=== PATIENT | male | born 1970 | race Caucasian/White ===

== ENCOUNTER 2021-12-09 09:35 | Outpatient (REF) | payer OTHER, SELFPAY ==
[2021-12-09 14:21] LABS: Anion Gap 5.4 mmol/L (3-11); BUN 24 mg/dL (7-18); CO2 31.6 mmol/L (21.0-32.0); Calcium 9.6 mg/dL (8.5-10.1); Calculated LDL 167 mg/dL (<100); Chloride 107 mmol/L (98-107); Cholesterol 253 mg/dL (<200); Glucose 96 mg/dL (74-106); HDL Cholesterol 76 mg/dL (40-60); Magnesium 2.1 mg/dL (1.8-2.4); Potassium 5.5 mmol/L (3.5-5.1); Sodium 144 mmol/L (136-145); Triglyceride 52 mg/dL (<150)
== END 2021-12-09 09:36 | disposition home or self-care (01) ==
LOC: NCHCN 09:35
PROVIDERS: Visit Provider Family Medicine
DX: Z00.00 Encounter for general adult medical examination without abnormal findings (principal); Z13.220 Encounter for screening for lipoid disorders; Z13.228 Encounter for screening for other metabolic disorders
CPT/HCPCS: 80048; 80061; 83735

== ENCOUNTER 2022-12-06 12:27 | Emergency (ER) | payer OTHER, SELFPAY ==
--- NOTE | 2022-12-06 12:30 | RT.EKG_ITS ---
APPROVED REPORT Exam: Resting ECG Reason for Exam: sob Patient Location: E HR:62 bpm ECG Measurements Heart Rate 62 AXIS NH 149 P 70 QRSd 105 QRS 64 QT 405 T 44 QTc 413 Conclusion Sinus rhythm...normal P axis, V-rate 60- 99 ST elev, probable normal early repol pattern...ST elevation, age<55
[2022-12-06 12:31] VITALS: BP 153/84; PULSE 63; RESP 18; TEMP 36.7; O2SAT 99
[2022-12-06] MEDS: Aspirin 81 MG CHEW 324 MG CH (12:51)
[2022-12-06 12:52] VITALS: RESP 15
[2022-12-06 12:55] LABS: Abs Immature Grans 0.05 10^3/uL (0.0-0.06); Absolute Basophil Count 0.06 10^3/uL (0.0-0.2); Absolute Eosinophil Count 0.28 10^3/uL (0.0-0.7); Absolute Lymphocyte Count 1.39 10^3/uL (1.2-3.4); Absolute Monocyte Count 1.34 10^3/uL (0.1-0.8); Basophils % 0.5; Eosinophils % 2.4; HCT 43.1 % (40.0-50.0); HGB 14.8 g/dL (13.5-17.5); Immature Grans % 0.4; Lymphocytes % 12.1; MCH 30.3 pg (27.0-33.0); MCHC 34.3 % (32.0-36.0); MCV 88 fL (80-95); MPV 9.3 fL (8.0-11.0); Monocytes % 11.7; Neutrophils % 72.9; Platelet Count 257 10^3/uL (130-400); RBC 4.88 10^6/uL (4.36-5.78); RDW-SD 39.1 fL; WBC 11.46 10^3/uL (4.4-10.8)
[2022-12-06 12:56] LABS: Absolute Neutrophil Count 8.35 10^3/uL (1.2-6.7)
--- NOTE | 2022-12-06 13:05 | ED.GENADUL_ITS ---
Discharge Plan Disposition Patient Disposition: Home Discharge Details Clinical Impression: Pulmonary embolism Primary Care Provider: Nolan Cohen ED Provider: Sudarshan Monroe Home Meds and New Rx's Prescriptions: New Eliquis DVT-PE Treat 30D Start 5 mg (74 tabs) tablets,dose pack 5 mg PO ONCE Qty: 74 0RF Rx Instructions: 10mg BID x 1 week then 5mg BID Discharge Instructions Instructions: Pulmonary Embolism (ED) Additional Instructions: If you develop any new or significant worsening of symptoms such as severe shortness of breath, syncope/passing out, severe chest pain return immediately to the emergency department for reassessment. Otherwise you will need to follow-up with your primary care provider in the next couple days for recheck. Referrals: Nolan Cohen MD [Primary Care Provider] - 3 days Discharge Data Discharge Date/Time-TO BE ENTERED AT DEPARTURE: 12/06/22 18:31 Medical Decision Making Patient presenting to the emergency department for chief complaint of chest pain. Patient reports that as he has been traveling in [place] over the last 3 days he had some chest pain and shortness of breath. It seemed to resolve then this morning had come back and has now been persistent left-sided chest pain which patient states is underneath his pectoral muscle. He does state sharp pain when he takes a deep breath. Patient denies any other injury or trauma, does state that he had a superficial thrombophlebitis about a week ago which resolved. Patient denies all other past medical history, states he is not on any medications, does occasionally have alcohol but denies any tobacco use. Physical exam is unremarkable except for noted discomfort when patient does take deep inspiration. Lung sounds are clear vital signs are stable beyond slightly noted hypertension. We will plan on checking labs, EKG, and imaging of the chest. Please see physician interpretation for full interpretation of EKG but upon my review patient is in sinus rhythm, rate of 62. No acute findings to suggest STEMI but there is noted ST changes with machine read of early repole. We will continue to monitor. Review of labs show a slight elevation of WBC neutrophils and lymphocytes, D- dimer is positive at 1000 408, CMP only shows slight elevation of bilirubin at 1.1 otherwise nondiagnostic. Troponin is negative and nondetectable, BNP is 54. Reviewed radiological imaging and spoke to radiologist whom stated that patient does have some right-sided PEs with left-sided pleural effusion. Discussed this with patient and patient states no right-sided pain or discomfort but is still having left-sided pain. We will start patient on Eliquis but will continue with repeat Trop given continued left-sided pain. Second troponin was negative and patient reassessed and remains nontachycardic, nonhypoxic, with stable vital signs. Given this I do feel that patient is appropriate for outpatient follow-up for PE and patient started on Eliquis. Did request a urgent follow-up with primary care provider for close monitoring and did give patient very clear instructions to return for new or worsening symptoms. After discussion of diagnosis and plan of care patient has no further needs, questions, or concerns and states clear understanding to return to the emergency department for any worsening symptoms. This documentation was generated using [employer] system, please disregard any oddities of phrase or misspellings. Imaging Data Radiologic Study: Attestation: I personally reviewed and interpreted this imaging study as follows: Imaging: CT Scan Radiologist's impression: Exam(s) CT CHEST PE CTA EXAM: CT CHEST PE CTA CLINICAL HISTORY: chest pain elevated ddimmer. TECHNIQUE: Imaging Protocol: Axial CT angiography was performed with multi- slice acquisition and multi-planar reconstructions as well as axial, coronal and sagittal MIP reconstructions. CONTRAST MATERIAL: Intravenous: Omnipaque 350 Contrast volume:100 ml COMPARISON: No exams were available for comparison FINDINGS: Pulmonary Arteries: Multiple pulmonary artery filling defects in segmental and subsegmental branches. Anterior right upper lobe. Posterior right lower lobe branches. Lingular branches. Tracheobronchial tree: Patent where visualized. Mediastinum and Rosaura: No dominant adenopathy or fluid collection. Pulmonary parenchyma: Mildly limited evaluation due to respiratory motion and expiratory changes. No consolidation or dominant measurable mass. Pleura: No pneumothorax. Small left pleural effusion. Heart: The heart is not dilated. No evidence of right heart strain. No coronary artery calcifications are seen. Aorta: Thoracic aorta non-dilated. No aneurysm. No dissection. Upper abdomen: Cyst upper pole right kidney. Bones: Unremarkable for age. Tubes, Catheters, and Lines: None IMPRESSION: Several small bilateral pulmonary emboli, greatest in the right lower lobe. Small left pleural effusion. HPI General Mode of arrival: ambulatory . Date/Time Provider Initiated Documentation: 12/06/22 12:38 . Limitations to Documentation: no limitations . Information obtained by: patient and RN notes reviewed . History of Present Illness 52 year old M presents to the emergency department with the chief complaint of Chest pain, shortness of breath, described as mild, with intensity rated at 2. Quality is described as stabbing and aching, and is localized to the chest. Patient reports radiation to back. Patient started experiencing this day(s) (3) and it has been intermittent. Medication improves symptom(s), (Some mild improved with ibuprofen) Other factors that worsen symptoms (Deep breathing) . Patient notes denies confusion, fever/chills, malaise, syncope and weakness. Patient did receive the following treatments prior to arrival, none Related Data Home Medications Medication Instructions Recorded Confirmed apixaban 5 mg (74 tabs) tablets in 5 mg PO ONCE #74 dose pk 12/06/22 a dose pack (Eliquis DVT-PE Treat 30D Start) Previous Rx's Medication Instructions Recorded apixaban 5 mg (74 tabs) tablets in 5 mg PO ONCE #74 dose pk 12/06/22 a dose pack (Eliquis DVT-PE Treat 30D Start) General Stated Complaint: Chest Pain MYRIAM: 3 Review of Systems Constitutional Constitutional: Denies chills, Denies fever(s) and Denies malaise Cardiovascular Cardiovascular: Reports as per HPI, Reports chest pain, Denies chest pain with activity, Denies syncope, Denies irregular heart rhythm, Denies palpitations and Reports dyspnea Respiratory Respiratory: Denies cough, Denies hemoptysis, Reports pain on inspiration and Reports dyspnea Gastrointestinal Gastrointestinal: Denies abdominal pain, Denies nausea and Denies vomiting Neurologic Neurologic: Denies syncope Psychiatric Psychiatric: Denies anxiety Endocrine Endocrine: Denies cold intolerance, Denies heat intolerance and Denies palpitations PFSH All Active Problems (Updated 12/06/22 @ 16:01 by Sudarshan Monroe NP) Pulmonary embolism (Chronic) Social History Smoking/Tobacco Use Status: Never Smoking risk assessment performed?: Yes Alcohol Intake: current Alcohol Intake frequency: a few times a week Substance use type: does not use and sedatives Do you feel safe at home: Yes Do you feel safe in your relationship?: Yes Exam Const General: cooperative, comfortable, no acute distress, not diaphoretic and not ill appearing Nutritional Appearance: average body habitus Orientation: alert, awake and oriented x3 Limitations: mental status not altered Neck Neck: normal visual inspection, full ROM, trachea midline, supple and no anterior neck swelling Thyroid: thyroid normal Carotids: normal carotid upstroke and no bruits Chest Chest: normal inspection of the chest Resp Effort & Inspection: normal respiratory effort and able to speak in complete sentences Auscultation: clear to auscultation bilaterally Cardio Jugular venous pressure: no JVD Palpation: normal PMI Rate: regular rate Rhythm: regular rhythm Heart Sounds: S1 normal, S2 normal, no click, no gallops, no murmurs and no rubs Bruits: no abdominal aortic bruits and no carotid bruits Pulses: radial pulses present bilaterally 2+ GI Inspection: normal to inspection Palpation: soft, no aortic enlargement, no pulsatile masses and nontender Auscultation: normal bowel sounds Skin General skin exam: no rashes or lesions noted Neuro General: patient alert, patient awake, patient oriented x3, tone normal and moves all extremities Course Vital Signs Vital signs: Vital Signs Temperature 36.7 C 12/06/22 12:31 Pulse 63 12/06/22 12:31 Respiratory Rate 18 12/06/22 12:31 Blood Pressure 153/84 H 12/06/22 12:31 Pulse Oximetry 99 12/06/22 12:31 Temperature 36.7 C 12/06/22 12:31 Temperature Source Rectal 12/06/22 12:31 Pulse 63 12/06/22 12:31 Respiratory Rate 15 12/06/22 12:52 Respiratory Effort Normal 12/06/22 12:52 Respiratory Depth Normal 12/06/22 12:52 Respiratory Pattern Normal 12/06/22 12:52 Blood Pressure 153/84 H 12/06/22 12:31 Blood Pressure Position Supine 12/06/22 12:31 Pulse Oximetry 99 12/06/22 12:31 Oxygen Delivery Method Room Air 12/06/22 12:31 Oxygen Flow Rate 0 12/06/22 12:31 Lab/Test Results Lab/Test Results: Laboratory Tests Range/Units 12/06/22 12:43 WBC (4.4-10.8) 10^3/uL 11.46 H RBC (4.36-5.78) 10^6/uL 4.88 Hgb (13.5-17.5) g/dL 14.8 Hct (40.0-50.0) % 43.1 MCV (80-95) fL 88 MCH (27.0-33.0) pg 30.3 MCHC (32.0-36.0) % 34.3 RDW (11.8-14.1) % 12.0 Plt Count (130-400) 10^3/uL 257 MPV (8.0-11.0) fL 9.3 Immature Gran % 0.4 Neutrophils % 72.9 Lymphocytes % 12.1 Monocytes % 11.7 Eosinophils % 2.4 Basophils % 0.5 Nucleated RBC % (0.0-0.3) % 0.0 Absolute Neutrophils (1.2-6.7) 10^3/uL 8.35 H Absolute Lymphocytes (1.2-3.4) 10^3/uL 1.39 Absolute Monocytes (0.1-0.8) 10^3/uL 1.34 H Absolute Eosinophils (0.0-0.7) 10^3/uL 0.28 Absolute Basophils (0.0-0.2) 10^3/uL 0.06 PAWSS Have you Been Recently Intoxicated or Drunk Within the Last 30 days?: No Have you Ever Experienced Previous Episodes of Alcohol Withdrawal?: No Have you ever Experienced Withdrawal Seizures?: No Have you ever Experienced Delirium Tremens(DT)s?: No Have you ever undergone Alcohol Rehabilitation Treatment (i.e, inpt ot outpatient treatment programs)?: No Have you ever Experienced Blackouts?: No Have you ever Combined Alcohol with other Downers within the last 90 days?: No Have you ever Combined Alcohol with any other Substance of Abuse during the last 90 days?: No Positive Blood Alcohol level on Presentation? [PCS.BAL]: No Evidence of Increased Autonomic Activity (i.e. HR>120, tremor, sweating, agitation, nausea)?: No Result: 0
[2022-12-06 13:23] LABS: ALT 27 U/L (16-63); AST 21 U/L (15-37); Albumin 3.8 g/dL (3.4-5.0); Alkaline Phosphatase 90 U/L (46-116); Anion Gap 9.3 mmol/L (3-11); BUN 18 mg/dL (7-18); Bilirubin, Total 1.1 mg/dL (0.2-1.0); CO2 26.7 mmol/L (21.0-32.0); Calcium 8.8 mg/dL (8.5-10.1); Chloride 105 mmol/L (98-107); Glucose 102 mg/dL (74-106); Magnesium 1.9 mg/dL (1.8-2.4); NT-proBNP 54 pg/mL (<300); Potassium 3.9 mmol/L (3.5-5.1); Sodium 141 mmol/L (136-145); Total Protein 7.8 g/dL (6.4-8.2); Troponin I < 50 ng/L (<or=60)
[2022-12-06 13:38] LABS: D-Dimer 1408 ng/mlFEU (<500)
--- NOTE | 2022-12-06 13:42 | DI.CT_ITS ---
Exam(s) CT CHEST PE CTA EXAM: CT CHEST PE CTA CLINICAL HISTORY: chest pain elevated ddimmer. TECHNIQUE: Imaging Protocol: Axial CT angiography was performed with multi-slice acquisition and mu lti-planar reconstructions as well as axial, coronal and sagittal MIP reconstructions. CONTRAST MATERIAL: Intravenous: Omnipaque 350 Contrast volume:100 ml COMPARISON: No exams were available for comparison FINDINGS: Pulmonary Arteries: Multiple pulmonary artery filling defects in segmental and subsegmental branches. Anterior right upper lobe. Posterior right lower lobe branches. Lingular branches. Tracheobronchial tree: Patent where visualized. Mediastinum and Rosaura: No dominant adenopathy or fluid collection. Pulmonary parenchyma: Mildly limited evaluation due to respiratory motion and expiratory changes. No consolidation or dominant measurable mass. Pleura: No pneumothorax. Small left pleural effusion. Heart: The heart is not dilated. No evidence of right heart strain. No coronary artery calcificatio ns are seen. Aorta: Thoracic aorta non-dilated. No aneurysm. No dissection. Upper abdomen: Cyst upper pole right kidney. Bones: Unremarkable for age. Tubes, Catheters, and Lines: None IMPRESSION: Several small bilateral pulmonary emboli, greatest in the right lower lobe. Small left pleural effus ion. RADIATION DOSE DELIVERED: 552.13mGy.cm Total DLP DATA REPOSITORY: All CT scans at this facility are submitted to the National Radiology Data Registry (NRDR) Dose Index Registry (DIR) with the [employer] (ACR). RADIATION OPTIMIZATION: All CT scans at this facility use at least one of these dose optimization te chniques: automated exposure control; mA and/or kV adjustment per patient size (includes targeted exa ms where dose is matched to clinical indication); or iterative reconstruction.
[2022-12-06] MEDS: Normal Saline - Diluent 50 ML VIAL IJ (14:02)
[2022-12-06] MEDS: Omnipaque 350 MG/ML 500 ML BTL-Imaging package IJ (14:03)
[2022-12-06] MEDS: Apixaban 5 MG TAB 10 MG PO (15:04)
[2022-12-06 16:01] LABS: Troponin I < 50 ng/L (<or=60)
--- NOTE | 2022-12-06 17:20 | NUR.NOTE ---
Nursing Note: Referral faxed to PCP for follow up for PE/ this week within 3 days.
--- NOTE | 2022-12-06 18:50 | NUR.NOTE ---
Nursing Note:Patient had a question about his prescription
== END 2022-12-06 18:31 | disposition home or self-care (01) ==
PROVIDERS: Emergency Provider Nurse Practitioner Family; PCP Family Medicine
DX: I26.99 Other pulmonary embolism without acute cor pulmonale (principal); R07.9 Chest pain, unspecified; R06.02 Shortness of breath
CPT/HCPCS: 36415; 71275; 80053; 93005; 99285; 83735; 83880; 84484; 85025; 85379; 93010; 99284

== ENCOUNTER 2023-04-07 10:31 | Day surgery (SDC) | payer OTHER, SELFPAY ==
--- NOTE | 2023-04-06 20:56 | W.PM.DSUDISC ---
Date of service: 04/07/23 Time of Service: 13:00 Discharge Plan Disposition Patient Disposition: Home Condition: Good Discharge Details Reason For Visit: screening colonoscopy Attending Provider: Domenico Salvador Primary Care Provider: Nolan Cohen Home Meds and New Rx's Prescriptions: Held Aureaqujenny DVT-PE Treat 30D Start 5 mg (74 tabs) tablets,dose pack 5 mg PO BID Hold Instructions: Resume on 04/08/23. Rx Instructions: 10mg BID x 1 week then 5mg BID Discontinued bisacodyl [Dulcolax (bisacodyl)] 5 mg tablet,delayed release (DR/EC) 5 mg PO ONCE Qty: 4 0RF Rx Instructions: Take per colonoscopy instructions provided by ordering providers office polyethylene glycol 3350 17 gram/dose powder 17 g PO ONCE Qty: 238 0RF Rx Instructions: Take per colonoscopy instructions provided by ordering providers office Discharge Instructions Instructions: Colorectal Polyps (GEN) Additional Instructions: Grayson, we were able to complete your colonoscopy today without any difficulty. I did find a total of 5 polyps. All were relatively small. I removed these all completely. Everything will be sent off to the pathologist for testing under the microscope, and once I know the nature of these polyps, I will be in touch with my recommendations for your next colonoscopy. I would like you to hold your apixaban through tonight. You can resume it tomorrow. 1. If tolerated, consume a soft, low fiber diet for 1-2 days. [address] not drive, drink alcohol, operate machinery, make critical decisions, or do activities that require coordination or balance for 24 hours. 3. Because air was put into your colon during the procedure, expelling air from your rectum (passing gas or farting) is normal. 4. You may not have a bowel movement for 1-3 days because of the colonoscopy prep. This is normal. 5. Go directly to the emergency room if you notice any of the following: Develop chills (warm to touch), or if you have a thermometer and your temperature is above 101 Difficulty breathing or difficultly swallowing Persistent vomiting Severe abdominal pain, other than gas cramps Severe chest pain Black, tarry stools Any bleeding ? exceeding one tablespoon 6. Call your physician if the site where your intravenous was started becomes red, swollen, painful, and warm to touch. 7. Your physician has reviewed your pre-procedure medications. Please continue to take those medications as previously ordered. You will be given specific information/education regarding any changes to your medications before leaving. Activity:: Activity as Tolerated Diet:: As Tolerated Discharge Orders Discharge Orders: Discharge Order (Routine); Ordered 04/06/23 Ordered By: Domenico Salvador
--- NOTE | 2023-04-06 20:58 | COLE_ITS ---
Date of service: 04/07/23 Time of Service: 13:07 Colonoscopy Report Date of procedure: 04/07/23 Pre-op diagnosis general: screening colonsocopy Post-op diagnosis procedure note: other (Colorectal polyps) Procedure: colonoscopy Surgeon: Domenico Salvador Anesthesia Type: General:No Airway Estimated blood loss (mL): 10 Pathology: other (Rectal polyp, polyp at 20 cm, polyp at 85 cm, 2 cecal polyps) Complications: None Disposition: same day Indications: Rafa is a 52 year old man who needs a screening colonoscopy Prep: Miralax/Dulcolax Procedure Start Time: 12:19 Procedure End Time: 12:48 Retraction Time: 21 Findings: 0.25 cm rectal polyp, 0.25 cm polyp at 20 cm, 0.75 cm polyp at 85 cm, 0.25 cm cecal polyps x2 Procedure Description: After the induction of monitored anesthetic care, and with the patient in left lateral decubitus position, I began by performing an external anorectal exam.? Perineum and skin were normal, as was the anal verge.? There was no evidence of external hemorrhoids.? Next, I performed a digital rectal exam.? I did not appreciate any abnormal findings.? Next, I advanced a colonoscope into the rectal vault.? I performed retroflexion.? This was normal.? Using insufflation, I then advanced the colonoscope beyond the rectal folds and into the sigmoid colon before advancing towards the cecum.? The scope was noted to be in the cecum by identification of the ileocecal valve and appendiceal orifice.? Within the cecum were 2 sessile polyps. Both were less than 0.25 cm. Both were removed with cold forcep polypectomy. There was minimal bleeding. I then began withdrawing the colonoscope using repeated irrigation as necessary for full evaluation of the colonic mucosa. Around 85 cm from the anal verge was a 0.75 cm sessile polyp. This was along a haustral fold. I was able to remove this with energized snare polypectomy. There was no bleeding here. I also found 0.25 cm polyps at 20 cm from the anal verge as well as within the rectal vault. Both of these polyps were sessile, and I removed both of these with cold forceps. There was minimal bleeding. Once the scope was withdrawn to the level of the rectum, great care was taken to examine portions of the rectal folds.? [place] bowel prep score was 3, 2, 3 from right to left. finally, the scope was withdrawn and the patient was brought to the same-day surgery recovery unit as the anesthetic wore off. ?The findings and instructions were shared with the patient prior to discharge.
[2023-04-07 10:47] VITALS: BP 122/77; PULSE 61; RESP 19; TEMP 36.4; O2SAT 98
[2023-04-07] MEDS: Lactated Ringers 1,000 ML 80 ML IV (11:02)
--- NOTE | 2023-04-07 11:58 | ANES.PREOP_ITS ---
General Info Date of Service Date Performed: 04/07/23 Height: 6 ft 5 in Weight: 114.6 kg Body Mass Index (BMI): 29.9 Surgical Procedure: Operation Date: 04/07/23 11:50 Proposed Procedure Side Surgeon p Colonoscopy Domenico Salvador MD Actual Procedure Side Surgeon p Colonoscopy Not Applicable Domenico Salvador MD Meds Allergies and Home Medications Allergies Allergy/AdvReac Type Severity Reaction Status Date / Time erythromycin base Allergy Intermediate Verified 04/07/23 10:56 Home Medication Medication Instructions Recorded apixaban 5 mg (74 tabs) tablets in 5 mg PO BID 03/31/23 a dose pack (EliRoyal Yatri Holidays DVT-PE Treat 30D Start) Current Visit Medications: Current Medications Generic Name Dose Route Start Last Admin Trade Name Freq PRN Reason Stop Dose Admin Hyoscyamine Sulfate 0.125 mg 04/06/23 20:59 Hyoscyamine 0.125 Mg Sl/Oral/Chew SL 05/06/23 20:58 DIRECTED PRN Ringer's Solution 1,000 mls @ 80 mls/hr 04/07/23 06:00 04/07/23 11:02 IV 05/06/23 23:59 80 mls/hr INFUSION EFREN Administration IV Miscellaneous Supplies 1 each 04/07/23 06:00 Iv Access IV 05/06/23 23:59 DIRECTED EFREN Ondansetron HCl 4 mg 04/06/23 20:59 Ondansetron 4 Mg/2 Ml Vial IVP 05/06/23 20:58 Q4H PRN PRN Nausea / Vomiting Sodium Chloride 0 ml 04/07/23 06:00 Normal Saline Flush 10 Ml Syr IV 05/06/23 23:59 PRN PRN Sodium Chloride 0 ml 04/07/23 06:00 Normal Saline 10 Ml Vial IJ 05/06/23 23:59 DIRECTED PRN Sterile Water 0 ml 04/07/23 06:00 Water,Injection,Sterile 10 Ml Vial IJ 05/06/23 23:59 DIRECTED PRN PFSH Active Problems Active Problems: Problem Status Onset Code Pulmonary embolism I26.99 Varicose veins of both lower extremities I83.93 Muscle cramps R25.2 Medical History Medical History (Updated 04/07/23 @ 10:55 by Nereida Viveros RN) Hx pulmonary embolism Tinnitus (~12/2022) Surgical History Surgical History (Updated 04/07/23 @ 10:57 by Nereida Viveros RN) History of tonsillectomy and adenoidectomy History of esophagogastroduodenoscopy (EGD) Tobacco Smoking/Tobacco Use Status: Never Alcohol Alcohol Intake: current Alcohol intake frequency: a few times a week Alcohol type: beer Substance Use Substance use type: does not use Vital Signs and Lab Results Vital Signs Most Recent Vital Signs in EMR: Most Recent Vital Signs Temp Pulse Resp BP Pulse Ox 36.4 C L 61 19 122/77 98 04/07/23 10:47 04/07/23 10:47 04/07/23 10:47 04/07/23 10:47 04/07/23 10:47 Lab Results Blood Type / Crossmatch: 2 No Data to Display Complete Blood Count: 2 No Data to Display Complete Metabolic Panel: 2 No Data to Display Liver Function Panel: 2 No Data to Display Coagulation Panel: 2 No Data to Display Cardiac Panel: 2 No Data to Display Arterial Blood Gas: 2 No Data to Display Venous Blood Gas: 2 No Data to Display Pancreas Panel: 2 No Data to Display Thyroid Panel: 2 No Data to Display Infectious Disease: 2 No Data to Display Blood Cultures: 2 No Data to Display Toxicology Panel: 2 No Data to Display Imaging and Studies Imaging and Studies Study information below may be from another EMR and interpreted by another provider. Please see original notes in EMR for more complete details. EKG Summary: EKG PATIENT NAME: Rafa Dick UNIT #: [id number] ORDERING PROVIDER: Sudarshan Monroe NP PRIMARY CARE PROVIDER: NONE DATE/TIME OF SERVICE: 12/06/22 1232 : 1970 PERFORMING LOCATION: ER APPROVED REPORT Exam: Resting ECG Reason for Exam: sob Patient Location: E HR:62 bpm ECG Measurements Heart Rate 62 AXIS MN 149 P 70 QRSd 105 QRS 64 QT 405 T44 QTc 413 Conclusion Sinus rhythm...normal P axis, V-rate 60- 99 ST elev, probable normal early repol pattern...ST elevation, age<55 - <Electronically signed by RADHA MCKEON MD in [place]> E-Sign Date: 12/06/22 E-Sign Time: 1239 ADDENDUM APPROVED REPORT Exam: Resting ECG Reason for Exam: sob Patient Location: E HR:62 bpm ECG Measurements Heart Rate 62 AXIS MN 149 P 70 QRSd 105 QRS 64 QT 405 T44 QTc 413 Conclusion Sinus rhythm...normal P axis, V-rate 60- 99 ST elev, probable normal early repol pattern...ST elevation, age<55 I have reviewed and I agree with the emergency room physician's ECG interpretation. Electronically signed by: <Electronically signed by Janeen Mehta M.D. in [place]> 12/06/22 1250 Cosigned by: Anesthesia Assessment and Plan Anesthesia History Personal History: No History of Anesthesia Complications Family History: No Family History of Anesthesia Complications Exercise Tolerance Exercise Tolerance: Metabolic Equivalents>4 Pertinent Negatives Pertinent Negatives: No Symptoms of GERD, No Major Cardiovascular Symptoms or Complaints and No History of CVA/TIA Cardiac & Pulmonary Exam Cardiac Exam: Normal S1/S2 Heart Sounds Pulmonary Exam: Clear Bilateral Breath Sounds Implantable Cardiac Device Does patient have a Pacemaker or an ICD?: No Airway Exam Known Difficult Airway: No Mallampati Class: 2 Mouth Opening: Normal (> 3cm) Thyromental Distance: Greater than 3 cm Neck Range of Motion: Full ROM Neck Circumference: Normal Teeth Condition: Normal Dentition Tooth Numberin 1. Missing ASA Classification ASA Score: ASA 2 Emergency Case?: No NPO Status NPO Status: NPO Clears >2 hours, Solids >8 hours Anesthesia Plan Resuscitation Status: Full Code Anesthesia Technique: General Anesthesia Airway Planned: Natural Airway Monitors Used: Standard Monitors
--- NOTE | 2023-04-07 12:20 | BOWEL_PTH ---
PATIENT: Rafa Dick LOC: [facility] U#:[id number] AGE/SX: 52/M ROOM: RE04/07/[address]: Domenico Salvador MD : 1970 BED: DIS: 04/07/2023 SPEC #: [id number] RECD: 04/07/23 16:59 STATUS: CARLOS RE #: [id number] ROXY: 04/07/23 12:[address]: Domenico Salvador DEPT: Surgical Specimen RECD BY: Vianney Yeager ENTERED: 04/07/23 17:00 SP TYPE: Bowel OTHR DR: Nolna Cohen Tissues: 1 - BIOPSY BOWEL 2 - BIOPSY BOWEL 3 - BIOPSY BOWEL 4 - BIOPSY BOWEL Procedures: GROSS AND MICRO LEVEL 4 Comments: [id number]
[2023-04-07 12:21] VITALS: BMI 29.9
[2023-04-07 12:53] VITALS: BP 115/77; PULSE 58; RESP 18; TEMP 36.4; O2SAT 98
[2023-04-07 13:23] VITALS: BP 130/76; PULSE 56; RESP 18; TEMP 36.8; O2SAT 100
--- NOTE | 2023-04-07 14:08 | W.ANESPOSTOP ---
Postoperative Evaluation Date, Time and Location Date Performed: 04/07/23 Time Performed: 12:53 Patient Location: Day Surgery Unit Vital Signs Most Recent Imported Vital Signs: Most Recent Vital Signs Temp Pulse Resp BP Pulse Ox 36.8 C 56 L 18 130/76 100 04/07/23 13:23 04/07/23 13:23 04/07/23 13:23 04/07/23 13:23 04/07/23 13:23 Pain Score Most Recent Pain Score: Most Recent Pain Score Pain Level 0 04/07/23 13:23 Assessment Mental Status: Awake (Alert & Oriented to Patient Baseline) Airway and Respiratory Function: Patent airway with normal (patient baseline) respiratory exam Cardiovascular Function: Hemodynamically Stable Hydration Status: Adequately Hydrated Nausea & Vomiting: No Nausea or Vomiting Pain: Pt. Denies Any Pain Peripheral Nerve Block: Patient did not receive a nerve block
== END 2023-04-07 13:34 | disposition home or self-care (01) ==
LOC: SUR 10:33
PROVIDERS: PCP Family Medicine; Visit Provider Surgery
PROC: 0DJD8ZZ Inspection of Lower Intestinal Tract, Via Natural or Artificial Opening Endoscopic (ICD-10-PCS; CPT 45378; principal; 2023-04-07 11:45)
DX: Z12.11 Encounter for screening for malignant neoplasm of colon (principal); K63.5 Polyp of colon
CPT/HCPCS: 45385; 45380; 88305

== ENCOUNTER 2024-02-09 03:37 | Outpatient (CLI) | payer OTHER, SELFPAY ==
[2024-02-09 09:42] LABS: HCT 47.1 % (40.0-50.0); HGB 15.7 g/dL (13.5-17.5); MCH 30.3 pg (27.0-33.0); MCHC 33.3 % (32.0-36.0); MCV 91 fL (80-95); MPV 8.9 fL (8.0-11.0); Platelet Count 271 10^3/uL (130-400); RBC 5.19 10^6/uL (4.36-5.78); RDW-SD 40.2 fL; WBC 9.19 10^3/uL (4.4-10.8)
[2024-02-09 10:09] LABS: Anion Gap 8.2 mmol/L (3-11); BUN 16 mg/dL (7-18); CO2 29.8 mmol/L (21.0-32.0); CREATININE 1.1 mg/dL (0.70-1.30); Calcium 9.7 mg/dL (8.5-10.1); Calculated LDL 145 mg/dL (<100); Chloride 105 mmol/L (98-107); Cholesterol 221 mg/dL (<200); Estimated GFR 79.77 (mL/min/1.73m2); Glucose 97 mg/dL (74-106); HDL Cholesterol 55 mg/dL (40-60); Potassium 4.4 mmol/L (3.5-5.1); Sodium 143 mmol/L (136-145); Triglyceride 105 mg/dL (<150)
== END 2024-02-09 03:38 | disposition home or self-care (01) ==
PROVIDERS: PCP Family Medicine; Visit Provider Family Medicine
DX: Z00.00 Encounter for general adult medical examination without abnormal findings (principal)
CPT/HCPCS: 36415; 80048; 80061; 85027

== ENCOUNTER 2025-03-05 14:58 | Outpatient (REF) | payer OTHER, SELFPAY ==
[2025-03-07 08:12] LABS: LDL CHOLESTEROL 136 mg/dL (<160)
== END 2025-03-05 14:59 | disposition home or self-care (01) ==
LOC: NCHCN 14:58
PROVIDERS: PCP Family Medicine; Visit Provider Family Medicine
DX: Z00.00 Encounter for general adult medical examination without abnormal findings (principal)
CPT/HCPCS: 83721